=== PATIENT | male | born 1945 | race Caucasian/White ===

== ENCOUNTER → 2024-11-01 | Outpatient (CLI) | payer MEDICARE, BC, SELFPAY ==
--- NOTE | 2024-11-01 10:47 | XR_ITS ---
Examination: Lumbar spine, 5 views Technique: Lumbar spine AP, lateral, coned lateral lower lumbar spine, bilateral obliques 5 views Exam date and time: November 01, 2024 1110 hours INDICATIONS: Right-sided back pain radiating down the right leg one month FINDINGS: Lumbar dextroscoliosis 16 degrees Diffuse moderate facet arthropathy Diffuse advanced lumbar degenerative disc disease No lumbar fracture IMPRESSION: Diffuse advanced lumbar degenerative disc disease with significant spinal stenosis
== END | disposition home or self-care (01) ==
LOC: SDIM 10:38
PROVIDERS: PCP Physician Assistant; Referring Provider Chiropractor; Visit Provider Chiropractor
DX: M51.369 Other intervertebral disc degeneration, lumbar region without mention of lumbar back pain or lower extremity pain (principal); M48.061 Spinal stenosis, lumbar region without neurogenic claudication
CPT/HCPCS: 72110